=== PATIENT | female | born 1990 | race Two or more races ===

== ENCOUNTER 2016-05-03 09:53 | Emergency (ER) | payer BC, OTHER ==
[2016-05-03 11:13] LABS: ABSOLUTE NEUTROPHIL COUNT 5.8 K/mm3 (1.8-7.7); BASO % 0.4 % (0.2-1.0); EOS # 0.2 (0.0-0.5); EOS % 2.2 % (0.9-2.9); HEMATOCRIT 46.8 % (37.0-47.0); HEMOGLOBIN 15.4 gm/l (12.0-16.0); IMM NEUT% 0.2 % (0-1); LYMPH # 1.7 (1.0-4.8); LYMPH % 20.5 % (15-45); MEAN CELL VOLUME 84.8 fl (81.0-99.0); MEAN CORPUSCULAR HEMOGLOBIN 27.9 pg (27.0-31.0); MEAN CORPUSCULAR HGB CONC 32.9 g/dl (33.0-37.0); MEAN PLATELET VOLUME 10.9 fl (7.4-10.4); MONO # 0.4 (0.0-0.8); MONO % 4.7 % (4-12); PLATELET COUNT 245 K/mm3 (130-400); RED CELL DISTRIBUTION WIDTH 12.9 % (11.5-14.5)
[2016-05-03] MEDS ORDERED: ACETAMINOPHEN 325 MG TABLET ONE (11:13)
[2016-05-03] MEDS ORDERED: PROCHLORPERAZINE 5 MG/ML 2 ML VIAL ONE (11:14)
[2016-05-03] MEDS ORDERED: LACTATED RINGERS 1,000 ML ONE (11:14)
[2016-05-03] MEDS ORDERED: DIPHENHYDRAMINE HCL 50 MG/1 ML VIAL ONE (11:14)
[2016-05-03 11:28] LABS: ALB/GLOB RATIO 1.4 (>1.0); ALBUMIN 4.6 gm/dL (3.5-5.7); CALCIUM 9.8 mg/dL (8.6-10.3)
[2016-05-03] MEDS ORDERED: MAGNESIUM SULFATE 2 G/50 ML 50 ML IV ONE (11:30)
--- NOTE | 2016-05-03 11:39 | RAD ---
05/03/2016 11:35 AM CHEST - 2 VIEWS History: Chest pain for 4 days Comparison: None Findings: Two views of the chest are obtained. The lungs are clear with out effusion or pneumothorax. The cardiomediastinal silhouette is unremarkable.. The osseous structures are intact.. IMPRESSION: No acute intrathoracic process.
== END 2016-05-03 13:42 | disposition home or self-care (01) ==
LOC: ED 09:53
DX: R07.9 Chest pain, unspecified (principal); R51 Headache; R05 Cough
CPT/HCPCS: 83605; 83690; 85379; 84703; 85025; 80053; 84484; 71020; 87804; 96375 ×2; 99284 ×2; 96365; 96366; 93005; J1200; J0780; A9270; J7120; J3475